=== PATIENT | male | born 1945 | race Caucasian/White ===

== ENCOUNTER → 2020-08-09 | Outpatient (CLI) | payer MEDICARE, OTHER | LOC: NM 08-07 10:00 | DX: Z95.1 Presence of aortocoronary bypass graft (principal) | CPT/HCPCS: 78452; 93017; A9502; J2785 ==

== ENCOUNTER → 2021-04-30 | Outpatient (CLI) | payer MEDICARE, OTHER ==
[2021-04-30 09:22] LABS: BUN/CREATININE RATIO 14 (0-10)
== END ==
LOC: CT 08:34
DX: K43.9 Ventral hernia without obstruction or gangrene (principal)
CPT/HCPCS: 36415; 80053; Q9967